=== PATIENT | male | born 1960 | race African-American/Black ===

== ENCOUNTER 2020-08-16 13:10 | Emergency (ER) | payer BC ==
[2020-08-16 13:58] LABS: Absolute Lymphocytes (CBC) 0.8 K/uL (0.7-4.9); Basophils % 0.7 % (0-1.3); Lymphocytes % 9.7 % (15.3-44.8); MPV 9.2 fL (7.6-11.3); RBC Red Blood Cell Count 4.93 M/uL (4.33-5.43)
--- NOTE | 2020-08-16 13:59 | RAD REPORT ---
EXAM DESCRIPTION: CT - Head Brain Wo Cont - 08/16/2020 1:50 pm CLINICAL HISTORY: DIZZINESS Headache, drowsiness COMPARISON: No comparisons TECHNIQUE: All CT scans are performed using dose optimization technique as appropriate and may inclu de automated exposure control or mA/KV adjustment according to patient size. FINDINGS: No intracranial hemorrhage, hydrocephalus or extra-axial fluid collection.Mild brain atrop hy noted.No areas of brain edema or evidence of midline shift. Minimal polypoid mucosal thickening inferior maxillary antra. The paranasal sinuses and mastoids appe ar clear. The calvarium is intact. IMPRESSION: No acute intracranial abnormality.
[2020-08-16 14:06] LABS: Protime INR 1.07
[2020-08-16 14:19] LABS: ALT/SGPT 39 U/L (12-78); AST/SGOT 22 U/L (15-37); Albumin 3.5 g/dL (3.4-5.0); Alkaline Phosphatase 52 U/L (45-117); BUN Blood Urea Nitrogen 18 mg/dL (7-18); Bicarbonate 31 mmol/L (21-32); Bilirubin Direct < 0.1 mg/dL (0-0.2); Bilirubin Total 0.2 mg/dL (0.2-1.0); Glucose Level 116 mg/dL (74-106); NT PRO-BNP 20 pg/mL (<125); Potassium 3.7 mmol/L (3.5-5.1); Protein, Total 6.7 g/dL (6.4-8.2); Sodium Level 141 mmol/L (136-145); Troponin (Emerg Dept Use Only) < 0.02 ng/mL (0.0-0.045)
[2020-08-16] MEDS ORDERED: NA CHLORIDE 0.9% 0 ML ONE (14:31)
--- NOTE | 2020-08-16 14:32 | RAD REPORT ---
EXAM DESCRIPTION: RAD - Chest Single View - 08/16/2020 2:19 pm CLINICAL HISTORY: dizziness Chest pain. COMPARISON: Chest Pa And Lat (2 Views) dated 02/21/2019 FINDINGS: Portable technique limits examination quality. The lungs are grossly clear. The heart is normal in size. No displaced fractures. IMPRESSION: No acute intrathoracic process suspected.
[2020-08-16] MEDS ORDERED: NA CHLORIDE 0.9% 1,000 ML ONE (15:18)
[2020-08-16 15:41] LABS: Urine Blood TRACE (NEG); Urine Glucose NEGATIVE (NEG); Urine Protein TRACE (NEG); Urine Specific Gravity 1.015 (1.005-1.030)
--- NOTE | 2020-08-16 15:55 | ER ---
Nurse's Notes [facility] Name: Terrell Thakur Age: 59 yrs Sex: Male : 1960 Arrival Date: 08/16/2020 Time: 13:26 Bed 20 Private MD: Diagnosis: Dizziness and giddiness Presentation: 08/16 13:20 Chief complaint: EMS states: Patient was feeling dizzy and lightheaded during yazidi. vg1 Gave patient 600 ml bolus BP was 104/60. Patient stated to them felt better. 13:20 Coronavirus screen: Client denies travel out of the [place] in the last 14 days. Ebola vg1 Screen: Patient negative for fever greater than or equal to 101.5 degrees Fahrenheit, and additional compatible Ebola Virus Disease symptoms. Initial Sepsis Screen: Does the patient meet any 2 criteria? No. Patient's initial sepsis screen is negative. Does the patient have a suspected source of infection? No. Patient's initial sepsis screen is negative. Risk Assessment: Do you want to hurt yourself or someone else? Patient reports no desire to harm self or others. Onset of symptoms was August 16, 2020. 13:20 Method Of Arrival: EMS: [facility] vg1 13:20 Acuity: RIN 3 vg1 Historical: - Allergies: 13:32 No Known Allergies; vg1 - Home Meds: 13:32 Lisinopril Oral [Active]; vg1 - PMHx: 13:32 Hypertension; vg1 - Immunization history:: Adult Immunizations up to date. - Social history:: Smoking status: unknown. Screenin:32 Abuse screen: Denies threats or abuse. Nutritional screening: No deficits noted. vg1 Tuberculosis screening: No symptoms or risk factors identified. Fall Risk No fall in past 12 months (0 pts). No secondary diagnosis (0 pts). IV access (20 points). Ambulatory Aid- None/Bed Rest/Nurse Assist (0 pts). Gait- Weak (10 pts.). Mental Status- Oriented to own ability (0 pts). Total Tavarez Fall Scale indicates No Risk (0-24 pts). Assessment: 13:32 General: Appears in no apparent distress. comfortable, Behavior is calm, cooperative. vg1 Pain: Denies pain. Neuro: Level of Consciousness is awake, alert, obeys commands, Oriented to person, place, time, situation. Cardiovascular: Patient's skin is warm and dry. Respiratory: Airway is patent Respiratory effort is even, unlabored, Respiratory pattern is regular, symmetrical. GI: No signs and/or symptoms were reported involving the gastrointestinal system. : No signs and/or symptoms were reported regarding the genitourinary system. EENT: No signs and/or symptoms were reported regarding the EENT system. Derm: Skin is intact, is healthy with good turgor. Musculoskeletal: Circulation, motion, and sensation intact. 14:45 Reassessment: Patient appears in no apparent distress at this time. Stated is hungry. vg1 Patient denies pain at this time. Patient states feeling better. 15:31 Reassessment: No changes from previously documented assessment. Patient is alert, vg1 oriented x 3, equal unlabored respirations, skin warm/dry/pink. 15:45 Reassessment: Patient denied dizziness during orthostatics. Provider notified. vg1 Vital Signs: 13:20 BP 91 / 60; Pulse 64; Resp 16; Temp 97.7; Pulse Ox 100% on R/A; Weight 84.37 kg; Height vg1 6 ft. 0 in. (182.88 cm); Pain 0/10; 13:30 BP 100 / 72; Pulse 66; Resp 16; Pulse Ox 100% on R/A; vg1 14:00 BP 96 / 69; Pulse 63; Resp 16; Pulse Ox 100% on R/A; vg1 15:00 BP 117 / 75; Pulse 66; Resp 14; Pulse Ox 100% on R/A; vg1 15:34 BP 119 / 80 Supine; Pulse 66; vg1 15:37 BP 138 / 86 Sitting; Pulse 68; vg1 15:40 BP 135 / 80 Standing; Pulse 70; vg1 13:20 Body Mass Index 25.23 (84.37 kg, 182.88 cm) vg1 ED Course: 13:26 Patient arrived in ED. vg1 13:27 Edouard Rogel PA is PHCP. cp 13:27 Edouard Ramirez MD is Attending Physician. cp 13:31 Triage completed. vg1 13:32 Maintain EMS IV. Dressing intact. Good blood return noted. Site clean \T\ dry. Gauge \T\ vg 1 site: 18 g in Right AC. 13:33 Prudencio, Nereida, RN is Primary Nurse. vg1 13:35 Patient has correct armband on for positive identification. Bed in low position. Call vg1 light in reach. Side rails up X 1. 13:[address] via wheelchair. vg1 13:50 CT Head Brain wo Cont In Process Unspecified. EDMS 13:54 Patient moved back from CT. vg1 14:19 XRAY Chest (1 view) In Process Unspecified. EDMS 16:05 No provider procedures requiring assistance completed. vg1 16:10 IV discontinued, intact, bleeding controlled, No redness/swelling at site. Pressure vg1 dressing applied. Administered Medications: 14:18 Drug: NS 0.9% 1000 ml Route: IV; Rate: 1 bolus; Site: right antecubital; vg1 16:12 Follow up: IV Status: Completed infusion; IV Intake: 1000ml vg1 15:21 Not Given (Physician Discretion): NS 0.9% 1000 ml IV at 1 bolus Per protocol; 1000 mL cp bolus Intake: 16:12 IV: 1000ml; Total: 1000ml. vg1 Outcome: 15:54 Discharge ordered by MD. cp 16:10 Discharged to home ambulatory, with family. vg1 16:10 Condition: stable 16:10 Discharge instructions given to patient, family, Instructed on discharge instructions, follow up and referral plans. Demonstrated understanding of instructions, follow-up care. 16:11 Patient left the ED. vg1 Signatures: Dispatcher [employer] EDOR Edouard Rogel PA PA cp Garcia, Victoria, RN RN vg1
--- NOTE | 2020-08-16 15:55 | EDPHYS ---
Physician Documentation [facility] Name: Terrell Thakur Age: 59 yrs Sex: Male : 1960 Arrival Date: 08/16/2020 Time: 13:26 Bed 20 Private MD: ED Physician Edouard Ramirez HPI: 08/16 13:35 This 59 yrs old Black Male presents to ER via EMS with complaints of Dizziness. cp 13:35 The patient presents with lightheadedness. cp 13:35 Onset: The symptoms/episode began/occurred today. cp 13:35 Associated signs and symptoms: Pertinent negatives: abdominal pain, chest pain, cp confusion, focal weakness, shortness of breath, syncope. Patient's baseline: Neuro: alert and fully oriented, Motor: no deficits, Ambulation: walks without assistance, Speech: normal. 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 cp denies LOC. EMS reports systolic pressure of 76 upon arrival. Patient given IV fluids en route. Reports to be feeling better. Historical: - Allergies: 13:32 No Known Allergies; vg1 - Home Meds: 13:32 Lisinopril Oral [Active]; vg1 - PMHx: 13:32 Hypertension; vg1 - Immunization history:: Adult Immunizations up to date. - Social history:: Smoking status: unknown. ROS: 13:40 Constitutional: Negative for body aches, chills, fever, poor PO intake. cp 13:40 Eyes: Negative for injury, pain, redness, and discharge. cp 13:40 Cardiovascular: Negative for chest pain, palpitations. 13:40 Respiratory: Negative for cough, shortness of breath, wheezing. 13:40 Abdomen/GI: Negative for abdominal pain, nausea, vomiting, and diarrhea. 13:40 Neuro: Positive for dizziness, weakness, Negative for altered mental status, headache, numbness, syncope, near syncope. 13:40 All other systems are negative. Exam: 13:45 Constitutional: The patient appears in no acute distress, alert, awake, comfortable, cp non-diaphoretic, non-toxic, well developed, well nourished. 13:45 Head/Face: Normocephalic, atraumatic. cp 13:45 Eyes: Periorbital structures: appear normal, Pupils: equal, round, and reactive to light and accomodation, Extraocular movements: intact throughout, Conjunctiva: normal, no exudate, no injection, Sclera: no appreciated abnormality, Lids and lashes: appear normal, bilaterally. 13:45 ENT: External ear(s): are unremarkable, Nose: is normal, Mouth: Lips: moist, Oral mucosa: moist, Posterior pharynx: Airway: no evidence of obstruction, patent. 13:45 Neck: ROM/movement: is normal, is supple, without pain, no range of motions limitations. 13:45 Chest/axilla: Inspection: normal, Palpation: is normal, no crepitus, no tenderness. 13:45 Cardiovascular: Rate: normal, Rhythm: regular, Pulses: Pulses are 2+ in right radial artery and left radial artery. Heart sounds: murmur, not appreciated, Edema: is not appreciated, JVD: is not appreciated. 13:45 Respiratory: the patient does not display signs of respiratory distress, Respirations: normal, no use of accessory muscles, no retractions, labored breathing, is not present, Breath sounds: are clear throughout, no decreased breath sounds. 13:45 Abdomen/GI: Inspection: abdomen appears normal, Palpation: abdomen is soft and non-tender, in all quadrants. 13:45 Neuro: Orientation: to person, place \T\ time. Mentation: is normal, Cerebellar function: Romberg testing is negative, normal finger to nose testing, Motor: moves all fours, strength is normal, Sensation: is normal. 14:10 ECG was reviewed by the Attending Physician. cp Vital Signs: 13:20 BP 91 / 60; Pulse 64; Resp 16; Temp 97.7; Pulse Ox 100% on R/A; Weight 84.37 kg; Height vg1 6 ft. 0 in. (182.88 cm); Pain 0/10; 13:30 BP 100 / 72; Pulse 66; Resp 16; Pulse Ox 100% on R/A; vg1 14:00 BP 96 / 69; Pulse 63; Resp 16; Pulse Ox 100% on R/A; vg1 15:00 BP 117 / 75; Pulse 66; Resp 14; Pulse Ox 100% on R/A; vg1 15:34 BP 119 / 80 Supine; Pulse 66; vg1 15:37 BP 138 / 86 Sitting; Pulse 68; vg1 15:40 BP 135 / 80 Standing; Pulse 70; vg1 13:20 Body Mass Index 25.23 (84.37 kg, 182.88 cm) vg1 MDM: 13:28 Patient medically screened. cp 14:00 Differential diagnosis: cardiac arrhythmia, generalized weakness, GI bleed, cp hypovolemia, idiopathic dizziness, TIA. 15:53 Data reviewed: vital signs, nurses notes, lab test result(s), EKG, radiologic studies, cp CT scan, plain films. 15:53 Counseling: I had a detailed discussion with the patient and/or guardian regarding: the cp historical points, exam findings, and any diagnostic results supporting the discharge/admit diagnosis, lab results, radiology results, the need for outpatient follow up, a family practitioner, to return to the emergency department if symptoms worsen or persist or if there are any questions or concerns that arise at home. Response to treatment: the patient's symptoms have markedly improved after treatment, and as a result, I will discharge patient. ED course: VSS. Patient reports symptoms resolved and that he is feeling better after IV fluids. Will discharge to home for continued monitoring. 08/16 13:28 Order name: Basic Metabolic Panel; Complete Time: 14:21 cp 08/16 14:21 Interpretation: Normal except: GLUC 116; CRE 1.65; GFR 52. cp 08/16 13:28 Order name: CBC with Diff; Complete Time: 14:12 cp 08/16 14:12 Interpretation: Normal except: PLT 142; JARET% 83.9; LYM% 9.7. cp 08/16 13:28 Order name: LFT's; Complete Time: 14:21 cp 08/16 13:28 Order name: Magnesium; Complete Time: 14:21 cp 08/16 13:28 Order name: NT PRO-BNP; Complete Time: 14:21 cp 08/16 13:28 Order name: PT-INR; Complete Time: 14:12 cp 08/16 13:28 Order name: Orthostatics; Complete Time: 15:44 cp 08/16 13:28 Order name: Troponin (emerg Dept Use Only); Complete Time: 14:21 cp 08/16 13:28 Order name: XRAY Chest (1 view); Complete Time: 14:38 cp 08/16 13:28 Order name: EKG; Complete Time: 13:29 cp 08/16 13:28 Order name: CT Head Brain wo Cont; Complete Time: 14:12 cp 08/16 15:04 Order name: Urine Dipstick--Ancillary (enter results) eb 08/16 13:28 Order name: Cardiac monitoring; Complete Time: 15:45 cp 08/16 13:28 Order name: EKG - Nurse/Tech; Complete Time: 15:45 cp 08/16 13:28 Order name: IV Saline Lock; Complete Time: 15:44 cp 08/16 13:28 Order name: Labs collected and sent; Complete Time: 15:44 cp 08/16 13:28 Order name: O2 Per Protocol; Complete Time: 15:44 cp 08/16 13:28 Order name: O2 Sat Monitoring; Complete Time: 15:44 cp 08/16 13:28 Order name: Urine Dipstick-Ancillary (obtain specimen); Complete Time: 15:06 cp EC:10 Rate is 60 beats/min. Rhythm is regular. OH interval is normal. QRS interval is normal. cp QT interval is normal. T waves are Inverted in lead aVR. Interpreted by me. Reviewed by me. Administered Medications: 14:18 Drug: NS 0.9% 1000 ml Route: IV; Rate: 1 bolus; Site: right antecubital; vg1 16:12 Follow up: IV Status: Completed infusion; IV Intake: 1000ml vg1 15:21 Not Given (Physician Discretion): NS 0.9% 1000 ml IV at 1 bolus Per protocol; 1000 mL cp bolus Disposition: 08/17 08:45 Co-signature as Attending Physician, Edouard Ramirez MD I [facility] and [facility]. Disposition: 08/16/20 15:54 Discharged to Home. Impression: Dizziness and giddiness. - Condition is Stable. - Discharge Instructions: Dizziness, How to Take Your Blood Pressure, Liaw-op-Gdcu, Form - Blood Pressure Record Sheet. - Medication Reconciliation Form, Thank You Letter, Antibiotic Education, Prescription Opioid Use form. - Follow up: Private Physician; When: 2 - 3 days; Reason: Recheck today's complaints. - Problem is new. - Symptoms are resolved. Signatures: Dispatcher [employer] Edouard Leung MD MD cha Page, Corey, PA PA cp Garcia, Victoria, RN RN vg1 Corrections: (The following items were deleted from the chart) 08/16 16:11 15:54 08/16/2020 15:54 Discharged to Home. Impression: Dizziness and giddiness. vg1 Condition is Stable. Forms are Medication Reconciliation Form, Thank You Letter, Antibiotic Education, Prescription Opioid Use. Follow up: Private Physician; When: 2 - 3 days; Reason: Recheck today's complaints. Problem is new. Symptoms are resolved. cp
--- NOTE | 2020-08-17 10:30 | EKG ---
Test Date: 2020-08-16 Test Time: 14:03:17 Kitchen Lead: KISHAN MEASUREMENT RESULTS: Intervals: Rate: 60 LA: 142 QRSD: 84 QT: 430 QTc: 430 [place]: P: 64 LA: 142 QRS: 5 T: 37 INTERPRETIVE STATEMENTS: Normal sinus rhythm Minimal voltage criteria for LVH, may be normal variant Borderline ECG Compared to ECG 07/18/1995 11:19:00 Left ventricular hypertrophy now present Early repolarization no longer present Electronically Signed On 08-17-20 10:27:56 CREDIT ADMINISTRATION SPECIALIST by Cory Kovacs
== END 2020-08-16 16:11 | disposition home or self-care (01) ==
LOC: ER 13:10
DX: R42 Dizziness and giddiness (principal); I10 Essential (primary) hypertension
CPT/HCPCS: 96361; 93005; 85025; 80048; 36415; 83735; 85610; 80076; 81003; 84484; 83880; 70450; 71045; 96360; 99284; J7030